=== PATIENT | female | born 2005 | race Caucasian/White ===

== ENCOUNTER 2025-05-22 15:36 | Outpatient (CLI) | payer OTHER | END 2025-05-22 15:37 | disposition home or self-care (01) | LOC: ULT 15:36 | PROVIDERS: ATTEND Nurse Practitioner | DX: O09.93 Supervision of high risk pregnancy, unspecified, third trimester (principal); O40.3XX0 Polyhydramnios, third trimester, not applicable or unspecified; Z33.1 Pregnant state, incidental; Z3A.29 29 weeks gestation of pregnancy | CPT/HCPCS: 76805 ==